=== PATIENT | female | born 2005 | race Two or more races ===

== ENCOUNTER → 2024-03-19 | Outpatient (CLI) | payer MEDICAID, SELFPAY ==
--- NOTE | 2024-03-19 11:15 | XR_ITS ---
Examination: Pelvic ultrasound, transabdominal, complete Technique: Transabdominal ultrasound of the pelvis performed using grayscale imaging Date and time of exam: March 19, 2024 1130 hours INDICATIONS: History uterine mass 4 years ago on screening examination, status post surgery FINDINGS: Uterus retroverted 7.2 x 4.1 x 4.4 cm Endometrial stripe 0.7 cm No uterine mass or intrauterine gestation Right ovary 3.1 x 1.9 x 2.9 cm arterial flow Left ovary obscured by bowel gas IMPRESSION: No uterine mass or intrauterine gestation
== END | disposition home or self-care (01) ==
PROVIDERS: PCP Nurse Practitioner Family; Referring Provider Nurse Practitioner Family; Visit Provider Nurse Practitioner Family
DX: D25.9 Leiomyoma of uterus, unspecified (principal); R10.9 Unspecified abdominal pain
CPT/HCPCS: 76856